=== PATIENT | female | born 1960 | race Caucasian/White ===

== ENCOUNTER 2021-11-11 08:28 | Day surgery (SDC) | payer OTHER, SELFPAY ==
[2021-11-11] VITALS (7 sets, daily range): BP systolic 110–137; BP diastolic 77–87; PULSE 70–85; RESP 18; TEMP 36.4–36.8; O2SAT 96–99; BMI 25.8
[2021-11-11] MEDS: Lactated Ringers 1,000 ML 15 ML IV (09:10)
--- NOTE | 2021-11-11 10:01 | RAD_ITS ---
PROCEDURE: Caudal block. DATE OF EXAMINATION: 11/11/2021. INDICATION: Female, 61 years old. Chronic low back pain. FLUOROSCOPY TIME (if supplied): (6 seconds) minutes/seconds. 2 images were obtained. RAD/Fluor Guidance for Spine Inj IMPRESSION: Intraoperative imaging provided for caudal block. Electronically Signed: Matt Gutierrez MD at 12:48 EDT ,
[2021-11-11] MEDS: Lidocaine 1% (5 ml sdv) 5 ML Vial (10:09)
[2021-11-11] MEDS: MethylPREDNISolone Acetate 80 MG/ML Vial (10:09)
[2021-11-11] MEDS: Bupivacaine 0.25% 30 ML Vial (10:09)
--- NOTE | 2021-11-11 10:41 | OP.PCM_ITS ---
Report of Operation Date of Procedure: 11/11/21 Pre-Operative Diagnosis: Lumbosacral radiculopathy, lumbosacral degenerative di sc disease, lumbosacral spinal stenosis Post-Operative Diagnosis: Lumbosacral radiculopathy, lumbosacral degenerative disc disease, lumbosacral spinal stenosis Surgery/Procedure Performed:: Caudal epidural steroid injection under fluoroscopic guidance Type of Anesthesia: MAC Estimated Blood Loss (mL): Minimal Description of Procedure: DESCRIPTION OF PROCEDURE: History and physical of today was reviewed. Risks and benefits of the procedure were explained. The patient understood and agreed to proceed. Informed consent was obtained. IV inserted per routine protocol. The patient was taken to the operating room and placed in the prone position with a pillow positioned underneath the abdomen. The lower back and tailbone area was prepped and draped in a sterile fashion using iodine x3. Under fluoroscopy guidance on a lateral view, the caudal space was identified. The skin and subcutaneous tissue was anesthetized with approximately 3 mL of 1% lidocaine using a 25-gauge regular needle. Under direct visualization with fluoroscopy, using a 22-gauge 3-1/2-inch spinal needle, the needle was advanced via the skin through the sacral hiatus. The tip of the needle was passed through the sacrococcygeal ligament and advanced to approximately S4 area. After negative aspiration of blood or CSF, a total of 3 mL of contrast was injected to confirm correct placement of the needle as well as cephalad spread. The spread was followed to approximately L5 area. After confirmation on AP as well as lateral view and repeated negative aspiration, a total of 15 mL of preservative-free 0.125% Marcaine with 80 mg of Depo-Medrol was injected easily. The needle was then removed intact. The patient experienced no sign or symptoms of intrathecal or intravascular injection. The patient experienced no paresthesia. The procedure was completed without any apparent difficulty or any complications. The patient appeared to tolerate it well. ASSESSMENT AND PLAN: This is a 61-year-old female with lumbosacral radiculopathy, lumbosacral degenerative disc disease, lumbosacral spinal stenosis status post caudal epidural steroid injection, patient will continue her current medications, patient will follow in approximately 2 weeks for reevaluation. Complications None
== END 2021-11-11 11:07 | disposition home or self-care (01) ==
LOC: SDC 08:30 → AC 08:48
PROVIDERS: PCP Nurse Practitioner Primary Care; Referring Provider Anesthesiology Pain Medicine; Visit Provider Anesthesiology Pain Medicine
PROC: 3E0S3BZ Introduction of Anesthetic Agent into Epidural Space, Percutaneous Approach (ICD-10-PCS; CPT 62282; principal; 2021-11-11 09:55)
DX: M51.17 Intervertebral disc disorders with radiculopathy, lumbosacral region (principal); M48.07 Spinal stenosis, lumbosacral region; K21.9 Gastro-esophageal reflux disease without esophagitis; Z79.899 Other long term (current) drug therapy
CPT/HCPCS: 62323; 01992; 64483; 77003; J7120; A4216

== ENCOUNTER 2022-01-13 08:23 | Day surgery (SDC) | payer OTHER, SELFPAY ==
[2022-01-13] VITALS (7 sets, daily range): BP systolic 111–140; BP diastolic 65–81; PULSE 55–76; RESP 14–16; TEMP 36.5–36.9; O2SAT 95–100; BMI 26.4
--- NOTE | 2022-01-13 09:57 | RAD_ITS ---
EXAM: XR LUMBOSACRAL SPINE, 2 OR 3 VIEWS CLINICAL INDICATION: LUMBAR EPIDURAL L4-S1 BILATERAL TECHNIQUE: Frontal and lateral views of the lumbar spine and sacrum. This report was created using [employer] report [employer] technology. COMPARISON: None. FINDINGS: 2 intraoperative fluoroscopic digital spot radiograph showing spinal needle in the left L4-L5 facet joint with contrast opacification and another spinal needle in the right L4-L5 facet joint with contrast opacification and contrast opacification along the right L5 nerve extending down the right lumbosacral trunk. RAD/Lumbar Spine 2 or 3 Views IMPRESSION: 1. Spinal needle injection in the left L4-L5 facet joint and right L4-L5 facet joint with contrast opacification as described above. 2. Total fluoroscopy time of 0.55 seconds (2.6 mGy). Electronically Signed: Abimael Hanley MD at 13:48 EDT ,
[2022-01-13] MEDS: MethylPREDNISolone Acetate 80 MG/ML Vial (10:06)
--- NOTE | 2022-01-13 10:21 | PCM.OPRPT ---
Report of Operation Date of Procedure: 01/13/22 Description of Surgical Findings:: PREOPERATIVE DIAGNOSIS: Lumbosacral radiculopathy, lumbosacral degenerative disc disease, lumbosacral spinal stenosis POSTOPERATIVE DIAGNOSIS: Lumbosacral radiculopathy, lumbosacral degenerative disc disease, lumbosacral spinal stenosis PROCEDURE PERFORMED: Bilateral lumbar transforaminal epidural steroid injection, L4-5. ANESTHESIA: MAC BLOOD LOSS: Minimal COMPLICATIONS: None DESCRIPTION OF PROCEDURE: History and physical of today was reviewed. Risks and benefits of the procedure were explained. The patient understood and agreed to proceed. Informed consent was obtained. IV inserted per routine protocol. The patient was taken to the operating room and placed in the prone position with a pillow positioned underneath the abdomen. The lower back was prepped and draped in a sterile fashion using iodine x3. Under fluoroscopy guidance on oblique view, the L4 through L5 vertebral bodies were visualized. The skin and subcutaneous tissue was anesthetized with approximately 5 mL of 1% lidocaine using a 25-gauge regular needle. Under direct visualization with fluoroscopy at approximately 35-degree angle, starting on the left L4-5, ending on the right L4-5, using a 22-gauge 5-inch spinal needle, the needle was advanced via the skin. The tip of the needle was maneuvered and directed towards the inferior and medial gutter of the transverse process at the superiormost aspect of the neural foramen. Once the tip of the needle was at the vicinity of the foramen, after negative aspiration for blood or CSF, a total of 1 mL of contrast was injected in divided doses between both levels to confirm correct placement of the needle as well as medial spread. The confirmation was obtained on AP as well as lateral view. After repeated negative aspiration and confirmation on AP as well as lateral view, a total of 6 mL of preservative-free 0.25% Marcaine with 80 mg of Depo-Medrol was injected in divided doses between both levels. The needles were then removed intact. The patient experienced no sign or symptoms of intrathecal or intravascular injection. The patient experienced no paresthesia. The procedure was completed without any apparent difficulty or any complications. The patient appeared to tolerate it well. Assessment and plan: This is a 61-year-old female with lumbosacral radiculopathy, lumbosacral degenerative disc disease, lumbosacral spinal stenosis status post bilateral lumbar transforaminal epidural steroid injection L4-5 under fluoroscopic guidance, patient will continue her current medications, patient will follow in approximately 2 weeks for reevaluation.
== END 2022-01-13 11:03 | disposition home or self-care (01) ==
LOC: SDC 08:27 → AC 08:28
PROVIDERS: PCP Nurse Practitioner Primary Care; Referring Provider Anesthesiology Pain Medicine; Visit Provider Anesthesiology Pain Medicine
PROC: 3E0S3BZ Introduction of Anesthetic Agent into Epidural Space, Percutaneous Approach (ICD-10-PCS; principal; 2022-01-13 09:45)
DX: M51.17 Intervertebral disc disorders with radiculopathy, lumbosacral region (principal); M48.07 Spinal stenosis, lumbosacral region; K21.9 Gastro-esophageal reflux disease without esophagitis; Z79.899 Other long term (current) drug therapy
CPT/HCPCS: 01992; 64483; 72100; J7120; J2405

== ENCOUNTER 2022-05-12 12:22 | Day surgery (SDC) | payer OTHER, SELFPAY ==
[2022-05-12 13:12] VITALS: BP 128/74; PULSE 68; RESP 16; TEMP 36.4; O2SAT 96; BMI 26.0
[2022-05-12] MEDS: Lactated Ringers 1,000 ML 15 ML IV (13:16)
--- NOTE | 2022-05-12 13:32 | RAD_ITS ---
STUDY: X-RAY - LUMBAR SPINE REASON FOR EXAM: Female, 61 years old. Intraprocedural digital documentation views of nerve block. TECHNIQUE: 4 intraprocedural digital documentation view(s) of the lumbar spine were obtained. COMPARISON: None FINDINGS: 4 views show needle on the right side at L3, L4, L5 and S1. . RAD/L/S Spine Min 4 Views IMPRESSION: Intraprocedural digital documentation views. Electronically Signed: Keshav Espitia, at 15:35 EST ,
[2022-05-12] MEDS: Lidocaine 1% (5 ml sdv) 5 ML Vial (13:33)
[2022-05-12] MEDS: MethylPREDNISolone Acetate 80 MG/ML Vial (13:34)
[2022-05-12 13:43] VITALS: BP 104/71; BP 137/87; PULSE 66; RESP 18; TEMP 36.4; O2SAT 93
[2022-05-12 13:45] VITALS: BP 103/71; BP 137/87; PULSE 64; RESP 18; O2SAT 94
[2022-05-12 13:50] VITALS: BP 103/68; BP 137/87; PULSE 64; RESP 18; O2SAT 94
[2022-05-12 13:56] VITALS: BP 115/73; BP 137/87; PULSE 68; RESP 18; TEMP 36.3; O2SAT 96
[2022-05-12 14:40] VITALS: BP 137/87
--- NOTE | 2022-05-12 15:01 | PCM.OPRPT ---
Report of Operation Date of Procedure: 05/12/22 Description of Surgical Findings:: PREOPERATIVE DIAGNOSIS: Lumbosacral spondylosis, lumbosacral degenerative disc disease, lumbar facet arthropathy POSTOPERATIVE DIAGNOSIS: Lumbosacral spondylosis, lumbosacral degenerative disc disease, lumbar facet arthropathy PROCEDURE PERFORMED: Left-sided lumbar medial branch block at, L4, L5, and S1. ANESTHESIA: MAC. BLOOD LOSS: Minimal. COMPLICATIONS: None. DESCRIPTION OF PROCEDURE: History and physical of today was reviewed. Risks and benefits of the procedure were explained. The patient understood and agreed to proceed. Informed consent was obtained. IV inserted per routine protocol. The patient was taken to the operating room and placed in the prone position with a pillow positioned underneath the abdomen. The left side of her lower back was prepped and draped in a sterile fashion using iodine x3. Under fluoroscopy on oblique view, the L3 through S1 vertebral bodies were visualized. The skin and subcutaneous tissue was anesthetized with approximately 5 mL of 1% lidocaine using a 25-gauge regular needle. Under direct visualization with fluoroscopy, at approximately 25-degree angle starting on the left L3, ending on the left S1, passing through the L4 and L5, using a 22-gauge 3-1/2-inch spinal needle, the needle was advanced via the skin. The tip of the needle was maneuvered and directed towards the superior medial gutter of the transverse process at the vicinity of the medial branch. Once tip of the needle was in contact with the bone, the needle was pulled approximately 2 mm off the bone. After negative aspiration of blood or CSF and confirmation on AP as well as oblique view, a total of 8 mL of preservative-free 0.25% Marcaine with 80 mg of Depo-Medrol was injected in divided doses between those four levels. The needles were then removed intact. The patient experienced no sign or symptoms of intrathecal or intravascular injection, The patient experienced no paresthesia. The procedure was completed without any apparent difficulty or any complications. The patient appeared to tolerate it well. ASSESSMENT AND PLAN: This is a 61-year-old female with lumbosacral spondylosis, lumbosacral degenerative disc disease, lumbar facet arthropathy status post left-sided lumbar medial branch block at L4-S1, patient will continue current medications, patient will follow approximately 2 weeks for reevaluation.
== END 2022-05-12 14:50 | disposition home or self-care (01) ==
LOC: SDC 12:26 → AC 12:46
PROVIDERS: PCP Nurse Practitioner Primary Care; Referring Provider Anesthesiology Pain Medicine; Visit Provider Anesthesiology Pain Medicine
PROC: 3E0S3BZ Introduction of Anesthetic Agent into Epidural Space, Percutaneous Approach (ICD-10-PCS; CPT 62322; principal; 2022-05-12 13:20)
DX: M47.816 Spondylosis without myelopathy or radiculopathy, lumbar region (principal); M47.817 Spondylosis without myelopathy or radiculopathy, lumbosacral region; M51.37 Other intervertebral disc degeneration, lumbosacral region; K21.9 Gastro-esophageal reflux disease without esophagitis
CPT/HCPCS: 64493; 64494; 64483; 72100; 72110; J7120

== ENCOUNTER 2022-07-14 09:46 | Day surgery (SDC) | payer OTHER, SELFPAY ==
[2022-07-14] VITALS (7 sets, daily range): BP systolic 118–132; BP diastolic 66–87; PULSE 60–75; RESP 16–18; TEMP 36.8–37.2; O2SAT 96–99; BMI 26.0
--- NOTE | 2022-07-14 10:10 | RAD_ITS ---
PROCEDURE: Left L4-S1 medial branch nerve block. DATE OF EXAMINATION: July 14, 2022. INDICATION: Female, 61 years old. Chronic low back pain. FLUOROSCOPY TIME (if supplied): (12 seconds) minutes/seconds. 5 images were submitted. RADIATION DOSAGE (If Supplied By Facility):( 1.86 ) mGycm RAD/L/S Spine Min 4 Views IMPRESSION: Intraoperative imaging provided for left L4-S1 medial branch nerve block. Electronically Signed: Matt Gutierrez MD at 13:35 EDT ,
[2022-07-14] MEDS: Lactated Ringers 1,000 ML 15 ML IV (10:15)
[2022-07-14] MEDS: Bupivacaine 0.25% 30 ML Vial (10:50)
[2022-07-14] MEDS: Lidocaine 1% (5 ml sdv) 5 ML Vial (10:50)
[2022-07-14] MEDS: MethylPREDNISolone Acetate 80 MG/ML Vial (10:50)
--- NOTE | 2022-07-14 10:55 | PCM.OPRPT ---
Report of Operation Date of Procedure: 07/14/22 Description of Surgical Findings:: PREOPERATIVE DIAGNOSIS:?Lumbosacral spondylosis, lumbosacral degenerative disc disease, lumbar facet arthropathy POSTOPERATIVE DIAGNOSIS:?Lumbosacral spondylosis, lumbosacral degenerative disc disease, lumbar facet arthropathy PROCEDURE PERFORMED:?Left-sided lumbar medial branch block at, L4, L5, and S1. ANESTHESIA:? MAC. BLOOD LOSS:? Minimal. COMPLICATIONS:? None. DESCRIPTION OF PROCEDURE:? History and physical of today was reviewed.? Risks and benefits of the procedure were explained.? The patient understood and agreed to proceed.? Informed consent was obtained.? IV inserted per routine protocol.? The patient was taken to the operating room and placed in the prone position with a pillow positioned underneath the abdomen.? The left side of her lower back was prepped and draped in a sterile fashion using iodine x3.? Under fluoroscopy on oblique view, the L3 through S1 vertebral bodies were visualized.? The skin and subcutaneous tissue was anesthetized with approximately 5 mL of 1% lidocaine using a 25-gauge regular needle.? Under direct visualization with fluoroscopy, at approximately 25-degree angle starting on the left L3, ending on the left S1, passing through the L4 and L5, using a 22-gauge 3-1/2-inch spinal needle, the needle was advanced via the skin.? The tip of the needle was maneuvered and directed towards the superior medial gutter of the transverse process at the vicinity of the medial branch.? Once tip of the needle was in contact with the bone, the needle was pulled approximately 2 mm off the bone.? After negative aspiration of blood or CSF and confirmation on AP as well as oblique view, a total of 8 mL of preservative-free 0.25% Marcaine with 80 mg of Depo-Medrol was injected in divided doses between those four levels.? The needles were then removed intact.? The patient experienced no sign or symptoms of intrathecal or intravascular injection, The patient experienced no paresthesia.? The procedure was completed without any apparent difficulty or any complications. The patient appeared to tolerate it well. ASSESSMENT AND PLAN:? This is a 61-year-old female with lumbosacral spondylosis, lumbosacral degenerative disc disease, lumbar facet arthropathy status post left-sided lumbar medial branch block at L4-S1, patient will continue current medications, patient will follow approximately 1-2 weeks for reevaluation.
== END 2022-07-14 11:58 | disposition home or self-care (01) ==
LOC: SDC 09:49 → AC 09:49
PROVIDERS: PCP Nurse Practitioner Primary Care; Referring Provider Anesthesiology Pain Medicine; Visit Provider Anesthesiology Pain Medicine
PROC: 3E0S3BZ Introduction of Anesthetic Agent into Epidural Space, Percutaneous Approach (ICD-10-PCS; CPT 62322; principal; 2022-07-14 11:05)
DX: M47.817 Spondylosis without myelopathy or radiculopathy, lumbosacral region (principal); M46.96 Unspecified inflammatory spondylopathy, lumbar region; M51.37 Other intervertebral disc degeneration, lumbosacral region; K21.9 Gastro-esophageal reflux disease without esophagitis; M19.90 Unspecified osteoarthritis, unspecified site
CPT/HCPCS: 64493; 64494; 01992; 64483; 72110; J7120

== ENCOUNTER 2022-09-29 05:58 | Day surgery (SDC) | payer OTHER, SELFPAY ==
[2022-09-29] VITALS (7 sets, daily range): BP systolic 88–119; BP diastolic 63–75; PULSE 57–68; RESP 16–18; TEMP 36.1–36.4; O2SAT 95–99; BMI 27.6
[2022-09-29] MEDS: Lactated Ringers 1,000 ML 15 ML IV (06:27)
--- NOTE | 2022-09-29 07:21 | RAD_ITS ---
PROCEDURE: Left L4-S1 radiofrequency ablation. DATE OF EXAMINATION: September 29, 2022 INDICATION: Female, 61 years old. Chronic low back pain. FLUOROSCOPY TIME (if supplied): (30.7 seconds) minutes/seconds. 10 images were submitted. 5.16 mGy RAD/Lumbar Spine 2 or 3 Views IMPRESSION: Intraoperative images provided for left L4-S1 radiofrequency ablation. Electronically Signed: Matt Gutierrez MD at 14:30 EDT ,
[2022-09-29] MEDS: MethylPREDNISolone Acetate 40 MG/ML Vial IM (07:39)
[2022-09-29] MEDS: Lidocaine 1% (30 ml sdv) 30 ML Vial (07:39)
--- NOTE | 2022-09-29 07:54 | PCM.OPRPT ---
Report of Operation Date of Procedure: 09/29/22 Pre-Operative Diagnosis: Lumbosacral spondylosis, lumbosacral degenerative disc disease, lumbar facet arthropathy Post-Operative Diagnosis: Lumbosacral spondylosis, lumbosacral degenerative disc disease, lumbar facet arthropathy Surgery/Procedure Performed:: Left-sided lumbar radiofrequency ablation of the medial branch L4, L5, S1 Type of Anesthesia: MAC Estimated Blood Loss (mL): Minimal Description of Procedure: History and physical today was reviewed. Risks and benefits of procedure explained. The patient understood, agreed to the procedure and informed consent was obtained. IV inserted per routine protocol. The patient was taken to the operating room, placed in the prone position with a pillow positioned underneath the abdomen. The left side of the lower back was prepped and draped in a sterile fashion using iodine x 3. Under fluoroscopy guidance, on an oblique view, the L3 through S1 vertebral bodies were visualized. The skin and subcutaneous tissue was anesthetized with approximately 10 mL of 1% lidocaine using a 25-gauge regular needle. Under direct visualization with fluoroscopy at approximately 25-degree angle, starting on the left L3, ending on the left S1 passing through the L4-L5 using a 20-gauge 15 cm with a 10 mm curved active tip radiofrequency ablation needle the needle passed through the skin. The tip of the needle was maneuvered and directed towards the superior and medial gutter of the transverse process at the vicinity of the medial branch. Once the tip of the needle was in contact with the bone, the needle pulled approximately 2 mm up the bone. The stylet of each needle was then removed. After negative aspiration of blood with CSF and confirmation of AP as well as oblique view, radiofrequency ablation probe was then inserted at each level. Impedance was then recorded at L3 to be 324, at L4 234, at L5 375, at S1 276 ohm. Motor-evoked potential was then initiated to 1.5 volt without any motor response at each corresponding level. The probe was then removed intact and a total of 6 mL preservative-free 1% lidocaine was injected in divided doses between those 4 levels after negative aspiration of blood with CSF. The radiofrequency ablation probe was then reinserted after confirmation of AP, oblique as well as lateral view. Radiofrequency ablation was then initiated to 80 degrees Celsius for 90 seconds at each level. Once concluded, the probe was then removed intact and a total of 6 mL of preservative-free 0.25% Marcaine with 40 mg Depo-Medrol was injected in divided doses between those 4 levels. The needles were then removed intact. The patient experienced no signs or symptoms of intrathecal, intravascular injection. The patient experienced no paraesthesia. The procedure was completed without any apparent difficulty, any complication. The patient appeared to tolerate well. Sensory as well as motor exam was unchanged from prior to procedure. ASSESSMENT AND PLAN: This is a 61-year-old female with lumbosacral spondylosis, lumbosacral degenerative disc disease, lumbar facet arthropathy, status post left-sided lumbar radiofrequency ablation of the medial branch L4 through S1. The patient will continue her current medications. The patient will follow up in approximately 2 weeks for reevaluation. Complications None
== END 2022-09-29 08:42 | disposition home or self-care (01) ==
LOC: SDC 05:59 → AC 06:00
PROVIDERS: PCP Nurse Practitioner Primary Care; Referring Provider Anesthesiology Pain Medicine; Visit Provider Anesthesiology Pain Medicine
PROC: (CPT 64635; principal; 2022-09-29 07:25)
DX: M47.817 Spondylosis without myelopathy or radiculopathy, lumbosacral region (principal); M46.96 Unspecified inflammatory spondylopathy, lumbar region; M51.37 Other intervertebral disc degeneration, lumbosacral region
CPT/HCPCS: 64635; 64636; 01992; 72100; 76000; J7120

== ENCOUNTER 2023-03-02 09:23 | Day surgery (SDC) | payer OTHER, SELFPAY ==
[2023-03-02] VITALS (7 sets, daily range): BP systolic 96–135; BP diastolic 63–77; PULSE 63–74; RESP 14–18; TEMP 36.6–37; O2SAT 91–97; BMI 27.4
--- NOTE | 2023-03-02 10:17 | RAD_ITS ---
PROCEDURE: Caudal epidural steroid injection. DATE OF EXAMINATION: March 02, 2023. INDICATION: Female, 62 years old. Chronic low back pain. FLUOROSCOPY TIME (if supplied): (2 seconds) minutes/seconds. 2.1 mGy. One image was submitted. RAD/Fluor Guidance for Spine Inj IMPRESSION: Intraoperative imaging provided for caudal epidural steroid injection. Electronically Signed: Matt Gutierrez MD at 11:10 EST ,
[2023-03-02] MEDS: MethylPREDNISolone Acetate 80 MG/ML Vial (10:22)
[2023-03-02] MEDS: Lidocaine 1% (5 ml sdv) 5 ML Vial (10:22)
[2023-03-02] MEDS: 0.9% Normal Saline (Pres. free 10 ML Vial (10:22)
--- NOTE | 2023-03-02 10:24 | OP.PCM_ITS ---
Report of Operation Date of Procedure: 03/02/23 Pre-Operative Diagnosis: Lumbosacral radiculopathy, lumbosacral degenerative di sc disease, lumbosacral spinal stenosis Post-Operative Diagnosis: Lumbosacral radiculopathy, lumbosacral degenerative disc disease, lumbosacral spinal stenosis Surgery/Procedure Performed:: Diagnostic/therapeutic caudal epidural steroid injection under fluoroscopic guidance Type of Anesthesia: MAC Estimated Blood Loss (mL): Minimal Description of Procedure: DESCRIPTION OF PROCEDURE: History and physical of today was reviewed. Risks and benefits of the procedure were explained. The patient understood and agreed to proceed. Informed consent was obtained. IV inserted per routine protocol. The patient was taken to the operating room and placed in the prone position with a pillow positioned underneath the abdomen. The lower back and tailbone area was prepped and draped in a sterile fashion using iodine x3. Under fluoroscopy guidance on a lateral view, the caudal space was identified. The skin and subcutaneous tissue was anesthetized with approximately 3 mL of 1% lidocaine using a 25-gauge regular needle. Under direct visualization with fluoroscopy, using a 22-gauge 3-1/2-inch spinal needle, the needle was advanced via the skin through the sacral hiatus. The tip of the needle was passed through the sacrococcygeal ligament and advanced to approximately S4 area. After negative aspiration of blood or CSF, a total of 3 mL of contrast was injected to confirm correct placement of the needle as well as cephalad spread. The spread was followed to approximately L5 area. After confirmation on AP as well as lateral view and repeated negative aspiration, a total of 15 mL of preservative-free 0.125% Marcaine with 80 mg of Depo-Medrol was injected easily. The needle was then removed intact. The patient experienced no sign or symptoms of intrathecal or intravascular injection. The patient experienced no paresthesia. The procedure was completed without any apparent difficulty or any complications. The patient appeared to tolerate it well. ASSESSMENT AND PLAN: This is a 62-year-old female with lumbosacral radiculopathy, lumbosacral degenerative disc disease, lumbosacral spinal stenosis status post diagnostic/therapeutic caudal epidural steroid injection, patient will continue her current medications, patient will follow in approximately 2 weeks for reevaluation. Complications None
== END 2023-03-02 11:20 | disposition home or self-care (01) ==
LOC: SDC 09:28 → AC 09:29
PROVIDERS: PCP Nurse Practitioner Primary Care; Referring Provider Anesthesiology Pain Medicine; Visit Provider Anesthesiology Pain Medicine
PROC: 3E0S3BZ Introduction of Anesthetic Agent into Epidural Space, Percutaneous Approach (ICD-10-PCS; CPT 62282; principal; 2023-03-02 10:55)
DX: M51.17 Intervertebral disc disorders with radiculopathy, lumbosacral region (principal); M46.96 Unspecified inflammatory spondylopathy, lumbar region; M48.07 Spinal stenosis, lumbosacral region; M47.817 Spondylosis without myelopathy or radiculopathy, lumbosacral region; M51.37 Other intervertebral disc degeneration, lumbosacral region; K21.9 Gastro-esophageal reflux disease without esophagitis; M19.90 Unspecified osteoarthritis, unspecified site; Z79.899 Other long term (current) drug therapy
CPT/HCPCS: 62323; 64483; 77003; J7120; J3490